=== PATIENT | female | born 1960 | race Caucasian/White ===

== ENCOUNTER 2019-08-21 14:30 | Emergency (ER) | payer OTHER ==
[2019-08-21 14:36] VITALS: BMI 35.0
--- NOTE | 2019-08-21 16:04 | PDOC ---
History of Present Illness - General Chief Complaint: Pain Stated Complaint: LF SIDE ABD PAIN Time Seen by Provider: 08/21/19 15:25 - History of Present Illness Initial Comments: Ms. Egan is a 59 y/o female with PMH significant for COPD, HLD, DM, chronic back and muscle pain, right upper extremity blood clot (20 years ago), presenting today with left lateral chest and breast pain that started yesterday. Reports that she got the flu shot on . Reports that the pain is worse with deep inspiration. Denies radiation of pain. Denies chest pain on exertion. Reports chronic cough. Reports chronic shortness of breath on exertion. Denies headache, nausea/vomiting, abdominal pain, urinary symptoms, leg swelling , change in stool. Past History - Past Medical History Allergies/Adverse Reactions: Allergies Allergy/AdvReac Type Severity Reaction Status Date / Time No Known Allergies Allergy Verified 08/21/19 14:36 Home Medications: Ambulatory Orders Biotin [Mark Biotin] 5,000 mcg PO DAILY 02/19/16 Dulaglutide [Trulicity] 0.75 mg SQ WEEKLY 02/19/16 Naproxen Sodium [Aleve] 220 mg PO PRN 02/19/16 Albuterol Sulfate Inhaler - [Ventolin HFA Inhaler -] 2 inh PO PRN 02/23/16 Baclofen [Lioresal -] 40 mg PO TID 02/23/16 Furosemide [Lasix -] 40 mg PO DAILY 02/23/16 metFORMIN HCL [Metformin ER Osmotic] 500 mg PO DAILY 02/23/16 Horizant 1,200 mg PO DAILY 01/08/17 SYMBICORT 160/4.5mcg - 2 puff IH BID 01/08/17 Claritin 1 tab PO DAILY 07/02/17 Lisinopril 2.5 mg PO DAILY 07/02/17 Montelukast Na [Singulair -] 1 tab PO HS 09/17/17 Tiotropium Fontanelle [Spiriva] 1 puff IH DAILY 09/17/17 Cancer: Yes (skin to anal area) COPD: Yes (with chronic bronchospasms) Diabetes: Yes (NON INSULIN DEPENDENT) Other medical history: spinal herniations - Surgical History Abdominal Surgery: No Appendectomy: No Cardiac Surgery: No Lung Surgery: No Neurologic Surgery: No Orthopedic Surgery: Yes (ACL RECONSTRUCTION) - Psycho Social/Smoking Cessation Hx Smoking History: Current every day smoker Have you smoked in the past 12 months: Yes Number of Cigarettes Smoked Daily: 10 Information on smoking cessation initiated: No Hx Alcohol Use: No Drug/Substance Use Hx: No Substance Use Type: None Review of Systems - Review of Systems Comments:: GENERAL/CONSTITUTIONAL: No fever or chills. No weakness._ HEAD, EYES, EARS, NOSE AND THROAT: No change in vision. No change in hearing. No sore throat._ CARDIOVASCULAR: Reports shortness of breath on exertion. RESPIRATORY: Reports chronic cough. Denies hemoptysis. GASTROINTESTINAL: No nausea, vomiting, diarrhea or constipation._ GENITOURINARY: No dysuria, frequency, or change in urination._ MUSCULOSKELETAL: Reports left lateral chest wall pain and left lateral breast pain. No neck or back pain._ SKIN: No rash_ NEUROLOGIC: No headache, vertigo, loss of consciousness, or change in strength/ sensation._ ENDOCRINE: No increased thirst. No abnormal weight change_ HEMATOLOGIC/LYMPHATIC: No anemia, easy bleeding. Reports hx of RUE blood clot. ALLERGIC/IMMUNOLOGIC: No hives or skin allergy._ *Physical Exam - Vital Signs Last Vital Signs Temp Pulse Resp BP Pulse Ox 98.6 F 97 H 18 115/67 99 08/21/19 18:42 08/21/19 18:42 08/21/19 18:42 08/21/19 18:42 08/21/19 18:42 - Physical Exam Comments: GENERAL: Awake, alert, and oriented to person/place/time, in no acute distress_ HEAD: No signs of trauma, normocephalic, atraumatic _ EYES: PERRLA, EOMI, sclera anicteric, conjunctiva clear_ ENT: Hearing grossly normal, nares patent, oropharynx clear without exudates. No uvular deviation. Moist mucosa_ NECK: Normal ROM, supple, no lymphadenopathy, JVD, or masses_ LUNGS: No distress, speaks in full sentences, clear to auscultation bilaterally _ HEART: Regular rate and rhythm, normal S1 and S2, no murmurs appreciated, peripheral pulses normal and equal bilaterally._ CHEST: TTP left lateral chest wall. No rash or overlying skin changes. No bony tenderness of the ribs. ABDOMEN: Soft, nontender, normoactive bowel sounds. No guarding, no rebound. No masses_ EXTREMITIES: Normal inspection, Normal range of motion, no edema bilaterally. No clubbing or cyanosis. No redness or erythema over BLE. NEUROLOGICAL: Cranial nerves II through XII grossly intact. Normal speech, normal gait, no focal sensorimotor deficits _ SKIN: Warm, Dry, normal turgor, no rashes or lesions noted_ ED Treatment Course - LABORATORY CBC & Chemistry Diagram: 08/21/19 16:54 08/21/19 16:54 - ADDITIONAL ORDERS Additional order review: Laboratory Results 08/21/19 08/21/19 08/21/19 18:10 16:54 16:54 PT with INR Cancelled INR Cancelled PTT (Actin FS) D-Dimer 761 H Sodium 137 Potassium 3.9 Chloride 100 Carbon Dioxide 30 Anion Gap 7 L BUN 14.3 Creatinine 0.8 Est GFR (CKD-EPI)AfAm 93.53 Est GFR (CKD-EPI)NonAf 80.70 Random Glucose 94 Calcium 9.1 Total Bilirubin 0.2 AST 23 ALT 41 Alkaline Phosphatase 120 H Creatine Kinase Creatine Kinase Index CK-MB (CK-2) Troponin I Total Protein 6.7 Albumin 3.8 08/21/19 08/21/19 16:54 16:54 PT with INR 10.90 INR 0.92 PTT (Actin FS) 34.2 D-Dimer Sodium Potassium Chloride Carbon Dioxide Anion Gap BUN Creatinine Est GFR (CKD-EPI)AfAm Est GFR (CKD-EPI)NonAf Random Glucose Calcium Total Bilirubin AST ALT Alkaline Phosphatase Creatine Kinase 473 H Creatine Kinase Index 1.3 CK-MB (CK-2) 6.3 H Troponin I < 0.02 Total Protein Albumin 08/21/19 16:54 RBC 5.34 H MCV 90.6 MCHC 34.0 RDW 14.4 MPV 7.4 L Neutrophils % 64.6 Lymphocytes % 22.5 Monocytes % 7.4 Eosinophils % 4.6 H Basophils % 0.9 - RADIOLOGY Radiology Studies Ordered: Category Date Time Status CHEST CTA [CT] Stat CT Scan 08/21/19 18:32 Taken CHEST PA & LAT [RAD] Stat Radiology 08/21/19 16:16 Taken - Medications Given in the ED: ED Medications Discontinued Medications Generic Name Dose Route Start Last Admin Trade Name Freq PRN Reason Stop Dose Admin Ibuprofen 600 mg 08/21/19 16:17 08/21/19 16:45 Motrin - PO 08/21/19 16:18 600 mg ONCE ONE Administration Medical Decision Making - Medical Decision Making 08/21/19 16:03 59F presenting with left lateral chest pain that started on Friday. Pleuritic in nature. -cbc, cmp -ekg, trop, cxr -D dimer given hx of prior DVT in RUE 08/21/19 18:33 Labs reviewed. Trop wnl. D-dimer elevated. -obtain CTA chest Laboratory Results - last 24 hr 08/21/19 08/21/19 08/21/19 16:54 16:54 16:54 WBC 9.8 RBC 5.34 H Hgb 16.4 H Hct 48.4 H MCV 90.6 MCH 30.8 MCHC 34.0 RDW 14.4 Plt Count 331 MPV 7.4 L Absolute Neuts (auto) 6.3 Neutrophils % 64.6 Lymphocytes % 22.5 Monocytes % 7.4 Eosinophils % 4.6 H Basophils % 0.9 Nucleated RBC % 0 PT with INR 10.90 INR 0.92 D-Dimer Sodium Potassium Chloride Carbon Dioxide Anion Gap BUN Creatinine Est GFR (CKD-EPI)AfAm Est GFR (CKD-EPI)NonAf Random Glucose Calcium Total Bilirubin AST ALT Alkaline Phosphatase Creatine Kinase 473 H Troponin I < 0.02 Total Protein Albumin 08/21/19 08/21/19 08/21/19 16:54 16:54 18:10 WBC RBC Hgb Hct MCV MCH MCHC RDW Plt Count MPV Absolute Neuts (auto) Neutrophils % Lymphocytes % Monocytes % Eosinophils % Basophils % Nucleated RBC % PT with INR Cancelled INR Cancelled D-Dimer 761 H Sodium 137 Potassium 3.9 Chloride 100 Carbon Dioxide 30 Anion Gap 7 L BUN 14.3 Creatinine 0.8 Est GFR (CKD-EPI)AfAm 93.53 Est GFR (CKD-EPI)NonAf 80.70 Random Glucose 94 Calcium 9.1 Total Bilirubin 0.2 AST 23 ALT 41 Alkaline Phosphatase 120 H Creatine Kinase Troponin I Total Protein 6.7 Albumin 3.8 08/21/19 21:23 CTA shows no signs of pulmonary embolism. Plan to d/c home, f/u PCP. Discharge - Discharge Information Problems reviewed: Yes Clinical Impression/Diagnosis: Chest wall pain Condition: Stable Disposition: HOME - Admission No - Follow up/Referral Referrals: Miguelito Pride [Non Staff, Medical] - Luis Lozano [Primary Care Provider] - - Patient Discharge Instructions Additional Instructions: Please make a follow up appointment with your primary care doctor and your neurologist (referrals included here). Please take Motrin as needed for your pain (follow instructions on the package). If you experience any new, worsening, or concerning symptoms, including chest pain, shortness of breath, leg or arm swelling, or any other concerns, please return to the emergency department. - Post Discharge Activity
[2019-08-21] MEDS ORDERED: IBUPROFEN 600 MG TABLET (FP) PO ONE ×2 (16:17→16:49)
--- NOTE | 2019-08-21 16:31 | PDOC ---
Attending Attestation - Resident Resident Name: TeagueJordanDakota - ED Attending Attestation I have performed the following: I have examined & evaluated the patient, The case was reviewed & discussed with the resident, I agree w/resident's findings & plan, Exceptions are as noted - HPI HPI: 08/21/19 16:30 59 F copd (not on o2), hl, dm, chronic back pain, RUE DVT, presents with L lateral chest pain sinceyesterday around 5am - pt notes the pain seems to be worse when she takes a deep breath. Pt denies any cough, fever/chills, n/v, worsening langford (ntoes she chronically has langford due to her copd), diaphoresis hemoptysis, increased leg swelling. pt notes she had a hx of flu shot on and hx of muscle spasms, and took a muscle relaxant without significant improvemnt. Physical exam: General: Pulm: CTA b/l Card: rrr, no mrg MSK normal movement of extremities, symmetric strength, unable to reproduce tenderness ext: no significant edema ddx - msk vs ptx vs pe, low risk of acs pt noted hypxic (may be her baseline o2) but is not sure what her baseline o2 is as her doctor doesnt really check it will obtain blood work including ddimer, trop, cxr will reassess - Physicial Exam PE: 08/21/19 17:14 see above - Medical Decision Making 08/21/19 17:14 see above
[2019-08-21 17:19] LABS: BASO % 0.9 % (0-2.0); EOS % 4.6 % (0-4.5); HEMATOCRIT 48.4 % (32.4-45.2); HEMOGLOBIN 16.4 GM/dL (10.7-15.3); LYMPH % 22.5 % (8-40); MCH 30.8 pg (25.7-33.7); MEAN CELL VOLUME 90.6 fl (80-96); MEAN PLT VOLUME 7.4 fl (7.5-11.1); MONO % 7.4 % (3.8-10.2); NEUT % 64.6 % (42.8-82.8); PLATELET COUNT 331 K/MM3 (134-434); RBC 5.34 M/mm3 (3.60-5.2); RDW 14.4 % (11.6-15.6); WHITE BLOOD COUNT 9.8 K/mm3 (4.0-10.0)
[2019-08-21 17:44] LABS: ALBUMIN 3.8 g/dl (3.4-5.0); BILIRUBIN,TOTAL 0.2 mg/dL (0.2-1); BLOOD UREA NITROGEN 14.3 mg/dL (7-18); CALCIUM 9.1 mg/dL (8.5-10.1); CREATININE 0.8 mg/dL (0.55-1.3); POTASSIUM 3.9 mmol/L (3.5-5.1); TOT PROT 6.7 g/dl (6.4-8.2)
[2019-08-21 18:31] LABS: INR 0.92 (0.83-1.09); PROTHROMBIN TIME (PATIENT) 10.9 SEC (9.7-13.0)
[2019-08-21 18:33] LABS: ACTIVATED PTT 34.2 SECONDS (25.2-36.5)
[2019-08-21 18:43] VITALS: BP 115/67; PULSE 97; TEMP 98.6
--- NOTE | 2019-08-22 13:40 | EKG ---
Test Reason : Blood Pressure : / mmHG Vent. Rate : 093 BPM Atrial Rate : 093 BPM P-R Int : 154 ms QRS Dur : 084 ms QT Int : 366 ms P-R-T Axes : 079 052 060 degrees QTc Int : 455 ms NORMAL SINUS RHYTHM LOW VOLTAGE QRS CANNOT RULE OUT ANTERIOR INFARCT , AGE UNDETERMINED ABNORMAL ECG NO PREVIOUS ECGS AVAILABLE Confirmed by MD Thuy, Phi ([id number]) on 08/22/2019 1:40:14 PM Referred By: Confirmed By:Phi Daley MD
== END 2019-08-21 22:18 | disposition home or self-care (01) ==
LOC: JER 14:30
DX: R07.89 Other chest pain (principal); J44.9 Chronic obstructive pulmonary disease, unspecified; E78.5 Hyperlipidemia, unspecified; E11.9 Type 2 diabetes mellitus without complications; Z79.84 Long term (current) use of oral hypoglycemic drugs; M54.89 Other dorsalgia; G89.29 Other chronic pain; M79.10 Myalgia, unspecified site; Z86.718 Personal history of other venous thrombosis and embolism; Z85.828 Personal history of other malignant neoplasm of skin
CPT/HCPCS: 36415; 71046-TC-FY; 71275-TC; 80053; 82550; 82553; 84484; 85025; 85379; 85610; 85730; 93005; 93010; 99282-25